=== PATIENT | female | born 1995 | race American Indian/Alaskan Native ===

== ENCOUNTER 2017-12-15 14:10 | Emergency (ER) | payer MEDICAID ==
[2017-12-15 15:30] VITALS: BP 118/79
--- NOTE | 2017-12-15 16:04 | Emergency Department Report ---
Minor Respiratory - HPI Chief Complaint: Sore Throat Stated Complaint: SORE THROAT Time Seen by Provider: 12/15/17 15:57 Duration: 1 Day Pain Location: Throat Minor Respiratory: Yes Sore Throat, Yes Able to Tolerate Fluids, No Rhinorrhea, No Ear Pain, No Cough, No Sick Contacts, No Hemoptysis, No Chest Pain, No Shortness of Breath, No Fever Other History: Mild sore throat, history of recurrent pharyngitis ED Review of Systems ROS: Stated complaint: SORE THROAT Other details as noted in HPI Constitutional: denies: fever, malaise Respiratory: denies: cough Cardiovascular: denies: chest pain ED Past Medical Hx - Past Medical History Hx Hypertension: No Hx Congestive Heart Failure: No Hx Diabetes: No Hx Deep Vein Thrombosis: No Hx Renal Disease: No Hx Sickle Cell Disease: No Hx Seizures: No Hx Asthma: Yes (childhood) Hx COPD: No Hx HIV: No - Social History Smoking Status: Never Smoker - Medications Home Medications: Home Medications Medication Instructions Recorded Confirmed Last Taken Type Pnv No.95/Ferrous Fum/Folic AC 1 each PO DAILY 10/30/15 01/10/16 01/08/16 History [Prenavite Tablet] Ferrous Sulfate [Feosol] 325 mg PO QDAY 01/09/16 01/10/16 01/08/16 History Ibuprofen [Motrin 600 MG tab] 600 mg PO Q6HR PRN #60 tablet 01/10/16 Unknown Rx Cephalexin 500 mg PO QID 7 Days #28 capsule 12/15/17 Unknown Rx Minor Respiratory Exam - Exam General: Vital signs noted. No distress. Alert and acting appropriately. HEENT: Yes Pharyngeal Erythema, Yes Pharyngeal Exudates, Yes Moist Mucous Membranes, No Rhinorrhea, No Conjuctival Injection Neck: Yes Supple Lungs: Yes Good Air Exchange, No Wheezes, No Ronchi, No Stridor, No Cough, No Labored Respirations, No Retractions, No Use of Accessory Muscles, No Other Abnormal Lung Sounds Heart: Yes Regular, No Murmur Skin: No Rash, No Edema Neurologic: Alert and oriented, no deficits. Musculoskeletal: Unremarkable. ED Course Vital Signs 12/15/17 15:26 Temperature 98.4 F Pulse Rate 87 Respiratory 16 Rate Blood Pressure 118/79 O2 Sat by Pulse 100 Oximetry ED Medical Decision Making - Medical Decision Making Carie presents with acute exudative pharyngitis. Prescribed cephalexin Critical care attestation.: If time is entered above; I have spent that time in minutes in the direct care of this critically ill patient, excluding procedure time. ED Disposition Clinical Impression: Acute pharyngitis Disposition: TO HOME OR SELFCARE Is pt being admited?: No Does the pt Need Aspirin: No Condition: Stable Instructions: Pharyngitis (ED) Prescriptions: Cephalexin 500 mg PO QID 7 Days #28 capsule Referrals: CHRIS CORONADO MD [Primary Care Provider] - 3-5 Days Time of Disposition: 16:04
== END 2017-12-15 16:14 | disposition home or self-care (01) ==
LOC: ED 14:10
DX: J02.9 Acute pharyngitis, unspecified (principal); J45.909 Unspecified asthma, uncomplicated
CPT/HCPCS: 99282

== ENCOUNTER 2018-03-01 15:33 | Emergency (ER) | payer MEDICAID ==
[2018-03-01 15:50] VITALS: BP 130/77
[2018-03-01] MEDS ORDERED: TYLENOL PO ONE (17:05)
[2018-03-01] MEDS ORDERED: XOPENEX IH ONE (17:05)
[2018-03-01] MEDS ORDERED: DECADRON IM ONE (17:05)
[2018-03-01] MEDS ORDERED: ATROVENT IH ONE (17:05)
--- NOTE | 2018-03-01 17:05 | Emergency Department Report ---
ED Asthma HPI - General Chief Complaint: Upper Respiratory Infection Stated Complaint: COLD SYMPTOMS Time Seen by Provider: 03/01/18 17:04 Source: patient, family Mode of arrival: Ambulatory Limitations: No Limitations - History of Present Illness Initial Comments: This is a 22-year-old female here report that she is having cold symptoms that started getting worse yesterday. She has been having nasal congestion and runny nose over the past week. She said her baby is sick and she thinks she caught something from her. She is reporting each throat, fever, chills and body aches 8 out of 10 and achy. Denies any shortness of breath or chest pain. Cough is dry. Patient says she took Tylenol at 6:00 this morning. Her last menstrual period 01/16/2018 and she says she is not a pile and usually missed her periods but she is . Denies any abdominal, back pain, no vaginal discharge or bleeding. Pain is alleviated with Tylenol and exacerbated with coughing her ear and generalized body ache. MD Complaint: "asthma attack", wheezing, other (bilateral ear pain and body ache ) Onset/Timin -: days(s) Asthma History: childhood onset Severity: similar to prior Context: recent URI Associated Symptoms: dry cough, fever, other (body aches). denies: productive cough, chest pain, hemoptysis, leg edema, syncope Treatments Prior to Arrival: other (none patient reports that she has not had asthma attack for a while.) - Related Data Current Asthma Therapy: none Home Medications Medication Instructions Recorded Confirmed Last Taken Pnv No.95/Ferrous Fum/Folic AC 1 each PO DAILY 10/30/15 01/10/16 01/08/16 [Prenavite Tablet] Ferrous Sulfate [Feosol] 325 mg PO QDAY 01/09/16 01/10/16 01/08/16 Previous Rx's Medication Instructions Recorded Last Taken Type Ibuprofen [Motrin 600 MG tab] 600 mg PO Q6HR PRN #60 tablet 01/10/16 Unknown Rx cephALEXin [Cephalexin] 500 mg PO QID 7 Days #28 capsule 12/15/17 Unknown Rx ALBUTEROL Inhaler (OR & NICU) 2 puff IH Q6H PRN #1 inhalation 03/01/18 Unknown Rx [ProAir HFA Inhaler] Acetaminophen [Acetaminophen ER] 650 mg PO Q6H PRN #15 tablet.er 03/01/18 Unknown Rx Azithromycin [Zithromax Z-DEDE] 250 mg PO DAILY 5 Days #1 pkg 03/01/18 Unknown Rx Cetirizine HCl [ZyrTEC] 10 mg PO QDAY 21 Days #21 03/01/18 Unknown Rx tab.rapdis Fluticasone [Flonase] 1 spray NS QDAY 14 Days #1 bottle 03/01/18 Unknown Rx methylPREDNISolone [Medrol Dose 4 mg PO DAILY #1 tab.ds.pk 03/01/18 Unknown Rx Dede] Allergies Allergy/AdvReac Type Severity Reaction Status Date / Time Penicillins Allergy Swelling Verified 10/30/15 18:00 ED Review of Systems ROS: Stated complaint: COLD SYMPTOMS Other details as noted in HPI Constitutional: chills, fever Eyes: denies: eye pain, eye discharge ENT: ear pain, throat pain, congestion (nasal congestion and runny nose) Respiratory: cough, wheezing. denies: shortness of breath, SOB with exertion, SOB at rest, stridor Cardiovascular: denies: chest pain, palpitations, edema, syncope Gastrointestinal: denies: abdominal pain, nausea, vomiting, diarrhea, constipation, hematemesis, melena, hematochezia Musculoskeletal: denies: back pain, joint swelling, arthralgia Skin: denies: rash, lesions Neurological: denies: headache, weakness ED Past Medical Hx - Past Medical History Previous Medical History?: Yes Hx Hypertension: No Hx Congestive Heart Failure: No Hx Diabetes: No Hx Deep Vein Thrombosis: No Hx Renal Disease: No Hx Sickle Cell Disease: No Hx Seizures: No Hx Asthma: Yes (childhood) Hx COPD: No Hx HIV: No - Surgical History Past Surgical History?: No - Family History Family history: asthma, hypertension - Social History Smoking Status: Current Every Day Smoker Substance Use Type: Alcohol - Medications Home Medications: Home Medications Medication Instructions Recorded Confirmed Last Taken Type Pnv No.95/Ferrous Fum/Folic AC 1 each PO DAILY 10/30/15 01/10/16 01/08/16 History [Prenavite Tablet] Ferrous Sulfate [Feosol] 325 mg PO QDAY 01/09/16 01/10/16 01/08/16 History Ibuprofen [Motrin 600 MG tab] 600 mg PO Q6HR PRN #60 tablet 01/10/16 Unknown Rx cephALEXin [Cephalexin] 500 mg PO QID 7 Days #28 capsule 12/15/17 Unknown Rx ALBUTEROL Inhaler (OR & NICU) 2 puff IH Q6H PRN #1 inhalation 03/01/18 Unknown Rx [ProAir HFA Inhaler] Acetaminophen [Acetaminophen ER] 650 mg PO Q6H PRN #15 tablet.er 03/01/18 Unknown Rx Azithromycin [Zithromax Z-DEDE] 250 mg PO DAILY 5 Days #1 pkg 03/01/18 Unknown Rx Cetirizine HCl [ZyrTEC] 10 mg PO QDAY 21 Days #21 03/01/18 Unknown Rx tab.rapdis Fluticasone [Flonase] 1 spray NS QDAY 14 Days #1 bottle 03/01/18 Unknown Rx methylPREDNISolone [Medrol Dose 4 mg PO DAILY #1 tab.ds.pk 03/01/18 Unknown Rx Dede] ED Physical Exam - General Limitations: No Limitations General appearance: alert, in no apparent distress - Head Head exam: Present: atraumatic, normocephalic, normal inspection, other - Eye Eye exam: Present: normal appearance, PERRL, EOMI Pupils: Present: normal accommodation - ENT ENT exam: Present: normal orophraynx, mucous membranes moist, normal external ear exam, other (bilateral nasal mucosa congested, erythema with clear drainage and maxillary sinus tenderness to palpate). Absent: normal exam, TM's normal bilaterally (bilateral TM congested without erythema) - Neck Neck exam: Present: normal inspection, full ROM, other (no C-spine tenderness). Absent: tenderness, meningismus, lymphadenopathy - Respiratory Respiratory exam: Present: wheezes (scattered wheezes into upper lung richardson), other (dry cough). Absent: respiratory distress, rales, rhonchi, stridor, chest wall tenderness, accessory muscle use, decreased breath sounds, prolonged expiratory - Cardiovascular Cardiovascular Exam: Present: normal rhythm, tachycardia, normal heart sounds. Absent: systolic murmur, diastolic murmur - GI/Abdominal GI/Abdominal exam: Present: soft, normal bowel sounds. Absent: distended, tenderness, guarding, rebound, rigid, organomegaly, mass - Extremities Exam Extremities exam: Present: normal inspection, full ROM, normal capillary refill , other (No cce. + 2 pulses in all extremities, no neurovascular compromise). Absent: tenderness, pedal edema, joint swelling, calf tenderness - Back Exam Back exam: Present: normal inspection, full ROM, other (ambulates without any difficulties). Absent: tenderness, CVA tenderness (R), CVA tenderness (L), muscle spasm, paraspinal tenderness, vertebral tenderness, rash noted - Neurological Exam Neurological exam: Present: alert, oriented X3, normal gait - Psychiatric Psychiatric exam: Present: normal affect, normal mood - Skin Skin exam: Present: warm, dry, intact, normal color. Absent: rash ED Course Vital Signs 03/01/18 03/01/18 03/01/18 15:47 17:20 17:24 Temperature 99.8 F H Pulse Rate 114 H Pulse Rate [ 110 H Anterior] Respiratory 16 18 Rate Respiratory 20 Rate [Anterior] Blood Pressure 130/77 O2 Sat by Pulse 99 Oximetry 03/01/18 03/01/18 03/01/18 17:38 17:45 17:58 Temperature 99.2 F Pulse Rate 98 H Pulse Rate [ Anterior] Respiratory 18 18 Rate Respiratory 20 Rate [Anterior] Blood Pressure O2 Sat by Pulse 99 Oximetry - Reevaluation(s) Reevaluation #1: 03/01/18 18:10 Patient given Xopenex 1.25 mg nebulizer, Atrovent 0.5 mg nebulizer. She was given Decadron 10 mg IM and up and reevaluation her lung sounds are clear and she was also given Tylenol 1 g by mouth for fever and pain and her pain is better and fevers down to 99.2. She is able to tolerate oral liquids without any difficulties. ED Medical Decision Making - Medical Decision Making This is a 22-year-old female here for upper respiratory cough and cold wheezes and says she has a history of asthma and as though she does not have asthma flare up for a while she feels like she is getting a flareup and she has not used albuterol and does not have any at home. Patient was seen and examined by myself and her physical exam is normal except she has bilateral TM congested without erythema, bilateral nasal mucosa erythema , congested with clear drainage and bilateral maxillary sinuses tender to palpate. Her mouth exam is normal and she has no cervical lymphadenopathy. No meningismus or C-spine tenderness. Patient lungs with scattered wheezing to upper lung richardson, dry cough and no use of accessory muscles. Her lung sounds are clear after Xopenex 1.25 mg, Atrovent 0.5 mg and Decadron 10 mg IM was given. She also received Tylenol 1 g by mouth for pain and for fever which she reports her pain is better. Vital signs as better heart rate is less than 100, O2 sat remained stable and her temperature is down to 99.2. She is able to tolerate ice water in emergency room. I discussed the patient her diagnosis, treatment plan and that she needs to follow up with primary care physician tomorrow if possible or to return to emergency room if she is feeling worse and she voiced understanding. Patient given prescription for Zyrtec and Flonase for nasal congestion and ear congestion, Z-Dede as she does have asthma and she has a fever. Tylenol for fever and pain, albuterol inhaler and Medrol Dosepak. Patient discharged home in stable condition to follow up with her primary care physician as instructed. Critical care attestation.: If time is entered above; I have spent that time in minutes in the direct care of this critically ill patient, excluding procedure time. ED Disposition Clinical Impression: Asthma with bronchitis, URI with cough and congestion, Fever in adult Disposition: DC-01 TO HOME OR SELFCARE Is pt being admited?: No Does the pt Need Aspirin: No Condition: Stable Instructions: Acute Bronchitis (ED), Asthma (ED), Upper Respiratory Infection ( ED) Additional Instructions: Please follow up with her primary care physician as instructed. If he condition worsens, please return to the emergency room Increasing fluid intake to at least 3 L of water daily Take medication as prescribed. Tylenol will help with your pain and also fever. Use albuterol inhaler every 6 hours 2 days and then as needed. She nostrils with saline nasal wash Zyrtec and Flonase for congestion Robitussin-DM for cough Referrals: PRIMARY CAREMD [Primary Care Provider] - 03/02/18 ANDRZEJ PELAEZ MD [Staff Physician] - 03/02/18 [facility] [Outside] - 03/02/18 Forms: Work/School Release Form(ED)
== END 2018-03-01 18:31 | disposition home or self-care (01) ==
LOC: ED 15:33
DX: J45.909 Unspecified asthma, uncomplicated (principal); J06.9 Acute upper respiratory infection, unspecified; F17.200 Nicotine dependence, unspecified, uncomplicated; Z88.0 Allergy status to penicillin
CPT/HCPCS: 94640; 96372; 99283; J1100